=== PATIENT | female | born 1945 | race Caucasian/White ===

== ENCOUNTER 2020-04-22 08:32 | Emergency (ER) | payer MEDICARE, SELFPAY ==
[2020-04-22 08:43] VITALS: BP 143/77; PULSE 90; RESP 16; TEMP 36.7; O2SAT 99
--- NOTE | 2020-04-22 08:55 | ED.EYEPROB ---
HPI - Eye Problem General Chief complaint: Eye Problems Stated complaint: EYE REDNESS/PAIN/DRAINAGE/HEADACHE Source: patient and RN notes reviewed Limitations: no limitations History of Present Illness HPI Narrative: The patient, who is a history of dry eyes, presents with left eye redness. Patient states she is on antihypertensives[including clonidine, etc.], and so saw racking technician on Thursday for dry eyes and was given Systane. She now complains of left eye discharge and redness without fever, sneezing/wheezing, photophobia, injury, foreign body sensation. Discussed possible causes [allergic, infectious, etc.] and will treat broadly this weekend, with follow-up by her eye doctor next week. Related Data Home Medications Medication Instructions Recorded Confirmed halobetasol propionate 1 applic TOPICAL BID 04/22/20 04/22/20 tacrolimus 1 applic TOPICAL BID 04/22/20 04/22/20 Allergies Allergy/AdvReac Type Severity Reaction Status Date / Time Latex, Natural Rubber Allergy Intermediate HIVES Verified 04/22/20 08:38 peanut Allergy Intermediate ITCHING Verified 04/22/20 08:38 ENTIRE BODY fenofibrate Allergy Unknown dizziness Verified 04/22/20 08:38 montelukast Allergy Unknown Nausea Verified 04/22/20 08:38 ranitidine Allergy Unknown muscle Verified 04/22/20 08:38 cramps Abxslyn-Aaf-Wxg Reductase Allergy Unknown leg cramps Verified 04/22/20 08:38 Inhibitor tramadol Allergy Unknown Unknown Verified 04/22/20 08:38 Review of Systems Review of Systems: Narrative: General/Constitutional: No weight loss,fever Eyes: REPORTS redness,discharge Ears/Nose/Throat: No: Epistaxis,ear discharge Respiratory: Denies: Hemoptysis Gastrointestinal: No Vomiting, Bleeding-rectal Skin: No Lumps, eruption Neurologic: No Focal Weakness,Sz Hematologic: Denies: Petechiae/Purpura Psychiatric: No: Suicida ideationl All Other Systems: Reviewed and Negative [facility] Past Medical History Medical History (Updated 04/22/20 @ 09:41 by Michael Hernandez MD) Arthritis BP (high blood pressure) Full body hives Mixed hyperlipidemia Pneumonia Urticaria Family History Family History Sibling Hypertension Family history of kidney disease Family history of malignant neoplasm of breast in first degree relative Family history of liver disease Family history of renal failure Mother Family history of heart disease in male family member before age 55 Acute myocardial infarction Father Cerebrovascular accident Family history of coronary artery disease, Onset Age: 68 Family history of gout Social History Social History (Updated 01/19/20 @ 08:53 by Kim Salmeron) Social History: Smoking status: Never smoker Second hand tobacco smoke exposure: No Alcohol intake: never Substance use: never Substance use type: does not use Gender identity (if verbalized by the patient): Female Comments At time of signature, agree with nursing past medical, surgical, social and family history. There is no relevant family history pertinent to the presenting complaint Exam Narrative: Exam Narrative: General Appearance: Well appearing, Well nourished, No distress EYE: PERRLA ,Pqwy-[id number]-jlwtfd mild inflammation, EOMI ,Lens normal Normal corneas (no fluorescein done), anterior chamber deep, Conjunctiva injection OS Ears: External ear normal, Auditory canal normal Nose: Normal nose, Nares clear Mouth/Throat: Normal appearing, Normal lips Supple Respiratory: Airway patent, No respiratory distress Skin: Warm, Dry Neurological: A&O x3,, Normal affect Course Vital Signs Vital signs: Vital Signs Temperature 98.1 F 04/22/20 08:43 Pulse Rate 90 04/22/20 08:43 Respiratory Rate 16 04/22/20 08:43 Blood Pressure 143/77 H 04/22/20 08:43 Pulse Oximetry 99 04/22/20 08:43 Temperature 98.1 F 04/22/20 08:43 Pulse Rate 90 04/22/20 08:43 Respirat
== END 2020-04-22 09:30 | disposition home or self-care (01) ==
PROVIDERS: Emergency Provider Emergency Medicine; PCP Family Medicine
DX: H10.32 Unspecified acute conjunctivitis, left eye (principal); M35.00 Sjogren syndrome, unspecified; M19.90 Unspecified osteoarthritis, unspecified site; E78.2 Mixed hyperlipidemia
CPT/HCPCS: 99213; G0463

== ENCOUNTER 2020-07-02 15:40 | Emergency (ER) | payer MEDICARE, SELFPAY ==
--- NOTE | ~2020-07-02 | CT_ITS ---
EXAMINATION: CT abdomen pelvis w con DATE: 07/02/2020 17:00 INDICATION: Left lower quadrant abdominal pain TECHNIQUE: Computed tomography (CT) of the abdomen and pelvis was performed with 100 cc Omnipaque 350 intravenous contrast. The dose-length product was 1243.33 mGy-cm. Automated exposure control and ite rative reconstruction technique were employed. COMPARISON: CT dated 01/14/2018. FINDINGS: Heart size normal. No significant pleural or pericardial effusion. Bibasilar dependent atel ectasis. Fatty infiltration of the liver. Status post cholecystectomy. There is mild thickening of the descend ing colon with surrounding inflammatory changes, consistent with acute diverticulitis. No evidence fo r perforation or abscess. The appendix is likely surgically absent. No significant vascular abnormali ty. IMPRESSION: 1. Acute uncomplicated diverticulitis of the descending colon. Reviewed, dictated and finalized at location A. OSIVE TECHNICIAN
[2020-07-02 15:49] VITALS: BP 164/76; PULSE 107; RESP 20; TEMP 37.1; O2SAT 96
[2020-07-02 16:08] LABS: Basophils Absolute Auto 0.1 K/mm3 (0.0-0.1); Basophils Percent Auto 0.4 % (0.2-1.2); Eosinophils Absolute Auto 0.2 K/mm3 (0-0.3); Eosinophils Percent Auto 1.2 % (0-4.4); Hematocrit 45.3 % (37.0-47.0); Hemoglobin 15.5 g/dL (12.0-15.0); Immature Granulocyte Absolute 0.04 K/mm3 (0.00-0.031); Immature Granulocyte Percent A 0.3 % (0-0.5); Mean Corpuscular HGB Conc 34.2 g/dl (32-36); Mean Corpuscular Hemoglobin 29.6 pg (26-34); Mean Corpuscular Volume 86.6 fl (80-100); Mean Platelet Volume 9.5 fl (7.4-10.4); Monocytes Absolute Auto 1.5 K/mm3 (0.1-0.6); Monocytes Percent Auto 10.5 % (2.6-8.5); Neutrophils Absolute Auto 10.4 K/mm3 (1.3-6.7); Neutrophils Percent Auto 74.6 % (45.5-73.1); Platelet Count Result 270 k/mm3 (150-375); Red Blood Count 5.23 M/mm3 (4.2-5.4); Red Cell Distribution Width 12.8 % (11.5-14.5); White Blood Count 13.9 K/mm3 (4.5-10.0)
[2020-07-02 16:20] LABS: Alanine Aminotransferase 22 U/L (4-35); Albumin Level 4.1 g/dL (3.5-5.1); Alkaline Phosphatase 66 U/L (38-126); Anion Gap 6 mmol/L (8-16); Aspartate Amino Transferase 22 U/L (14-36); Bilirubin,Total 1.2 mg/dL (0.2-1.3); Blood Urea Nitrogen 11 mg/dL (7-17); Calcium 8.9 mg/dL (8.4-10.2); Carbon Dioxide 27 mmol/L (22-30); Chloride 101 mmol/L (98-107); Estimated CRCL calculation 47 ml/min; Estimated Glomerular Filt Rate 54; Glucose 135 mg/dL (65-105); Lipase 50 U/L (23-300); Sodium 134 mmol/L (137-145)
[2020-07-02 16:31] LABS: Add Urine Microscopic? YES; Appearance Urine Clear (Clear); Bacteria Urine 1+ /hpf; Bilirubin Urine Negative (Negative); Blood Urine Negative (Negative); Color Urine Yellow (Yellow); Glucose Urine UA Negative (Negative); Ketones Urine Negative (Negative); Leukocyte Esterase Ur 2+ LEU/UL (Negative); Mucus Urine Few /lpf; Nitrate Urine Negative (Negative); Protein Urine 1+ mg/dL (Negative); RBC Urine 0-2 /hpf (0-2); Specific Grav Ur 1.014 (1.001-1.035); Squamous Epithelial Cell Urine Many /hpf (Few); Urobilinogen Urine Negative mg/dL (<2.0); WBC Urine 31-50 /hpf
[2020-07-02] MEDS: SODIUM CHLORIDE 0.9% IV 500 ML 999 ML IV CONT (16:46)
--- NOTE | 2020-07-02 16:57 | ED.ABDPAIN ---
HPI - Abdominal Pain General Chief Complaint: Abdominal Pain Stated Complaint: ABD Pain Time Seen by Provider: 07/02/20 15:44 Source: patient and family Mode of arrival: ambulatory Limitations: no limitations History of Present Illness HPI narrative: Patient is 74-year-old female who presents for evaluation of left lower quadrant abdominal pain with some mucus stools a small amount of blood noting history of diverticulitis stating symptoms are consistent with past diverticulitis denies fever chills nausea vomiting presents in no distress lives at home with her Related Data Home Medications Medication Instructions Recorded Confirmed halobetasol propionate 1 applic TOPICAL BID 04/22/20 05/28/20 tacrolimus 1 applic TOPICAL BID 04/22/20 05/28/20 Allergies Allergy/AdvReac Type Severity Reaction Status Date / Time Latex, Natural Rubber Allergy Intermediate HIVES Verified 07/02/20 16:04 peanut Allergy Intermediate ITCHING Verified 07/02/20 16:04 ENTIRE BODY tramadol Allergy Unknown Unknown Verified 07/02/20 16:04 fenofibrate AdvReac Unknown dizziness Verified 07/02/20 16:04 montelukast AdvReac Unknown Nausea Verified 07/02/20 16:04 ranitidine AdvReac Unknown muscle Verified 07/02/20 16:04 cramps Suvbnmr-Yeu-Iup Reductase AdvReac Unknown leg cramps Verified 07/02/20 16:04 Inhibitor Review of Systems Review of Systems: All systems reviewed & are unremarkable except as noted in HPI and below PMFSH Past Medical History Medical History (Updated 07/02/20 @ 17:50 by Hank Loya PA-C) Arthritis BP (high blood pressure) Full body hives Mixed hyperlipidemia Pneumonia Urticaria Family History Family History Sibling Hypertension Family history of kidney disease Family history of malignant neoplasm of breast in first degree relative Family history of liver disease Family history of renal failure Mother Family history of heart disease in male family member before age 55 Acute myocardial infarction Father Cerebrovascular accident Family history of coronary artery disease, Onset Age: 68 Family history of gout Social History Social History Social History: Smoking status: Never smoker Second hand tobacco smoke exposure: No Alcohol intake: never Substance use: never Substance use type: does not use Gender identity (if verbalized by the patient): Female Exam Narrative: Exam Narrative: GENERAL: Well-appearing, well-nourished, and in no acute distress. HEAD: Normocephalic, atraumatic. EYES: PERRLA and EOMI. ENT: Nares clear, no rhinorrhea or epistaxis. Mucous membranes moist. CHEST: Clear to auscultation. No respiratory distress. No wheezes rales or rhonchi HEART: Regular rate and rhythm. No murmur heard. Normal peripheral pulses. ABDOMEN: Soft, left-sided abdominal tenderness with voluntary guarding, nondistended EXTREMITIES: Normal range of motion. No edema. SKIN: Warm, dry, no rash. NEURO: No focal deficits. Alert and oriented x3. PSYCH: Normal mood and affect. Course Course Emergency Course: Patient with uncomplicated diverticulitis afebrile nontoxic-appearing no distress will be discharged home with outpatient follow-up Patient afebrile nontoxic-appearing no emesis feels comfortable with managing her diverticulitis having had multiple episodes in the past patient will follow with the provided GI referral and primary care Vital Signs Vital signs: Vital Signs Temperature 98.7 F 07/02/20 15:49 Pulse Rate 107 H 07/02/20 15:49 Respiratory Rate 20 07/02/20 15:49 Blood Pressure 164/76 H 07/02/20 15:49 Pulse Oximetry 96 07/02/20 15:49 Temperature 98.7 F 07/02/20 15:49 Pulse Rate 82 07/02/20 17:20 Respiratory Rate 18 07/02/20 17:20 Blood Pressure 118/57 L 07/02/20 17:20 Pulse Oximetry 95 07/02/20 17:20 LORI Dominguez
[2020-07-02 17:20] VITALS: BP 118/57; PULSE 82; RESP 18; O2SAT 95
[2020-07-02 18:19] VITALS: BP 123/55; PULSE 77; RESP 17; O2SAT 100
== END 2020-07-02 18:21 | disposition home or self-care (01) ==
PROVIDERS: Emergency Medicine; Emergency Provider Emergency Medicine; PCP Family Medicine
DX: K57.32 Diverticulitis of large intestine without perforation or abscess without bleeding (principal); M19.90 Unspecified osteoarthritis, unspecified site; I10 Essential (primary) hypertension; E78.2 Mixed hyperlipidemia
CPT/HCPCS: 36415; 74177; 80053; 81001; 83690; 85025; 87077; 87086; 87088; 87186; 96365; 99284; J0131; J7040; Q9967

== ENCOUNTER 2020-07-10 07:51 | Outpatient (CLI) | payer MEDICARE, SELFPAY ==
--- NOTE | ~2020-07-10 | MM_ITS ---
EXAMINATION: MM screening lora BI w blessing HISTORY: Screening mammogram TECHNIQUE: Craniocaudal and mediolateral oblique 3-D tomosynthesis images were obtained and synthetic 2-D images were generated. CAD analysis was submitted and interpreted. COMPARISON: 06/20/2019, 06/17/2018, 06/08/2017 bilateral digital screening mammogram examinations BREAST PARENCHYMAL COMPOSITION: There are scattered areas of fibroglandular density. FINDINGS: .. There is no evidence of suspicious mass, calcification, or architectural distortion to s uggest malignancy in either breast. There has been no suspicious interval change. IMPRESSION: 1. No mammographic evidence of malignancy. 2. Recommend routine screening mammography in one year. BI-RADS Category 1: Negative Reviewed, dictated and finalized at location A. [employer] INTELLIGENCE OFFICER CHIEF
== END 2020-07-10 07:52 | disposition home or self-care (01) ==
LOC: ANHIMG 07:53
PROVIDERS: PCP Family Medicine; Visit Provider Family Medicine
DX: Z12.31 Encounter for screening mammogram for malignant neoplasm of breast (principal)
CPT/HCPCS: 77063; 77067

== ENCOUNTER 2020-09-12 07:56 | Outpatient (CLI) | payer MEDICARE, SELFPAY | END 2020-09-12 07:57 | disposition home or self-care (01) | LOC: ANHCOVIDVC 07:57 | PROVIDERS: PCP Family Medicine | DX: Z23 Encounter for immunization (principal) | CPT/HCPCS: 0001A; 91300 ==

== ENCOUNTER 2020-10-03 07:57 | Outpatient (CLI) | payer MEDICARE, SELFPAY | END 2020-10-03 07:58 | LOC: ANHCOVIDVC 07:57 | PROVIDERS: PCP Family Medicine | DX: Z23 Encounter for immunization (principal) | CPT/HCPCS: 0002A; 91300 ==

== ENCOUNTER → 2022-01-17 07:43 | Outpatient (CLI) | payer MEDICARE, SELFPAY ==
--- NOTE | ~2022-01-17 | DEXA_ITS ---
Bone Density Report Name: TONY BREAUX Age: 76 Sex: Female Ethnicity: White Date of : 1945 Indication: postmenopausal; screening for osteoporosis; Referring Provider: GEM MILLAN Study: Bone densitometry was performed. Exam Date: January 17, 2022 Accession number: [id number] Bone Density: Region BMD T-score Z-score Classification AP Spine (L1-L4) 0.940 -1.0 1.4 Normal Femoral Neck (Left) 0.746 -0.9 1.2 Normal Total Hip (Left) 0.878 -0.5 1.3 Normal Femoral Neck (Right) 0.768 -0.7 1.4 Normal Total Hip (Right) 0.891 -0.4 1.4 Normal Total Hip Mean 0.885 -0.5 1.4 Normal World Health Organization criteria for BMD impression classify patients as: Normal (T-score at or above -1.0), Osteopenia (T-score between -1.0 and -2.5), or Osteoporosis (T-score at or below -2.5). 10-year Fracture Risk: FRAX not reported because: All T-scores for Spine Total, Hip Total, Femoral Neck at or above -1.0 Treated for osteoporosis Clinical Information Provided by Patient: Is being treated for osteoporosis Has used the following medications: Fosamax (i.e. alendronate), Vitamin D, Calcium, MTV Patient maximum height was 65.0 Menopause Age: 39 No regular weight bearing exercise Drinks caffeinated beverages Onset of menses at age 13 Number of children 3 Impression: The patient has normal bone mass. Discussion: It is important to ask patients whether they are taking their medications and to encourage continued and appropriate compliance with their osteoporosis therapies to reduce fracture risk. It is also important to review their risk factors and encourage appropriate calcium and vitamin D intakes, exercise, fall prevention and other lifestyle measures. Follow-Up: Consider a repeat BMD and Vertebral Fracture Assessment (VFA) exam in 2 years or sooner if medically necessary, to reassess this patient's status. Reported by: AMADO on 01/17/2022 8:37:00 AM. Reviewed, dictated and finalized at location A. [facility]
--- NOTE | ~2022-01-17 | MM_ITS ---
EXAMINATION: MM screening lora BI w blessing HISTORY: Screening mammogram TECHNIQUE: Craniocaudal and mediolateral oblique 3-D tomosynthesis images were obtained and synthetic 2-D images were generated. CAD analysis was submitted and interpreted. COMPARISON: 07/10/2020, 06/20/2019, 06/17/2018 bilateral screening mammogram examinations BREAST PARENCHYMAL COMPOSITION: There are scattered areas of fibroglandular density. FINDINGS: There is no evidence of suspicious mass, calcification, or architectural distortion to sugg est malignancy in either breast. There has been no suspicious interval change. IMPRESSION: 1. No mammographic evidence of malignancy. 2. Recommend routine screening mammography in one year. BI-RADS Category 1: Negative Reviewed, dictated and finalized at location A.
== END ==
PROVIDERS: PCP Family Medicine; Visit Provider Family Medicine
DX: Z12.31 Encounter for screening mammogram for malignant neoplasm of breast (principal); Z78.0 Asymptomatic menopausal state
CPT/HCPCS: 77063; 77067; 77080

== ENCOUNTER 2022-07-26 19:47 | Emergency (ER) | payer MEDICARE, SELFPAY ==
--- NOTE | ~2022-07-26 | CT_ITS ---
EXAMINATION: CT abdomen pelvis w con DATE: 07/26/2022 22:33 INDICATION: Left lower quadrant abdominal pain. History of diverticulitis. TECHNIQUE: Computed tomography (CT) of the abdomen and pelvis was performed with 100 CC Omnipaque 350 intravenous contrast. Automated exposure control and iterative reconstruction technique were employe d. Exam dose: 898.53 mGy-cm total exam DLP. COMPARISON: July 02, 2020 CT abdomen pelvis FINDINGS: Minimal discoid atelectasis and/or scarring at the lung bases. Normal heart size. No perica rdial or pleural effusion. Small sliding hiatal hernia. Diffuse hepatic steatosis. No hepatic space-occupying mass lesion. Status post cholecystectomy. No bi le duct or pancreatic duct dilatation. No pancreatic mass lesion or calcification. Normal splenic siz e. Normal morphology of the adrenal glands. No renal mass lesion or urinary tract calculus or hydroureteronephrosis. The urinary bladder, uterus and adnexal areas are unremarkable. There is atherosclerotic calcification of the abdominal aorta and at the origins of both renal arteri es. No abdominal aortic aneurysm. No intraperitoneal or retroperitoneal or pelvic mass lesion or maury opathy or ascites. Extensive diverticulosis of left and right colon. There is prominent soft tissue thickening of the wall of the mid descending colon with prominent sana colic fat stranding in this region, most suggestive of uncomplicated diverticulitis, without abscess. However, this setting the fact that similar changes were present in similar location on July 02, 2020, continued follow-up is recommended, including possibly colonoscopy if necessary, in order to ex clude: colon malignancy... Degenerative changes of the thoracic and lumbar spine. Prominent bilateral hip osteoarthritis. IMPRESSION: Prominent soft tissue thickening of the wall of the descending colon with prominent sana colic fat stranding suggesting diverticulitis. Recommend clinical correlation and possibly colonoscop y to exclude colon carcinoma. Extensive diverticulosis of left and right colon Status post appendectomy Small sliding hiatal hernia Hepatic steatosis Status post cholecystectomy Reviewed, dictated and finalized at Location A. Reviewed, dictated and finalized at location A. R PLANT MECHANIC IMPRESSION: Prominent soft tissue thickening of the wall of the descending col on with prominent pericolic fat stranding suggesting diverticulitis. Recommend clinical correlation and possibly colonoscopy to exclude colon carcinoma. Extensive diverticulosis of left and right colon Status post appendectomy Small sliding hiatal hernia Hepatic steatosis Status post cholecystectomy
[2022-07-26 19:52] VITALS: BP 159/75; PULSE 97; RESP 16; TEMP 36.5; O2SAT 97
[2022-07-26] MEDS: SODIUM CHLORIDE 0.9% IV 1,000 ML 999 ML IV CONT (20:33)
[2022-07-26] MEDS: ONDANSETRON INJ 4 MG/2 ML VIAL IV PUSH (20:34)
[2022-07-26 20:37] LABS: Basophils Percent Auto 0.2 % (0.2-1.2); Eosinophils Absolute Auto 0.2 K/mm3 (0-0.3); Eosinophils Percent Auto 1.3 % (0-4.4); Hematocrit 42.6 % (37.0-47.0); Hemoglobin 14.6 g/dL (12.0-15.0); Immature Granulocyte Absolute 0.04 K/mm3 (0.00-0.031); Immature Granulocyte Percent A 0.3 % (0-0.5); Lymphocytes Percent Auto 13.1 % (18.3-44.2); Mean Corpuscular HGB Conc 34.3 g/dl (32-36); Mean Corpuscular Hemoglobin 29.7 pg (26-34); Mean Corpuscular Volume 86.8 fl (80-100); Mean Platelet Volume 9.4 fl (7.4-10.4); Monocytes Percent Auto 9.1 % (2.6-8.5); Neutrophils Absolute Auto 8.7 K/mm3 (1.3-6.7); Platelet Count Result 249 k/mm3 (150-375); Red Blood Count 4.91 M/mm3 (4.2-5.4); Red Cell Distribution Width 12.7 % (11.5-14.5); White Blood Count 11.5 K/mm3 (4.5-10.0)
[2022-07-26 20:51] LABS: Alanine Aminotransferase 29 U/L (6-35); Albumin Level 4.4 g/dL (3.5-5.1); Alkaline Phosphatase 51 U/L (38-126); Anion Gap 9 mmol/L (8-16); Aspartate Amino Transferase 25 U/L (14-36); Bilirubin,Total 1.2 mg/dL (0.2-1.3); Blood Urea Nitrogen 14 mg/dL (7-17); Calcium 9.4 mg/dL (8.4-10.2); Carbon Dioxide 24 mmol/L (22-30); Chloride 99 mmol/L (98-107); Estimated CRCL calculation 57 ml/min; Estimated Glomerular Filt Rate > 60; Glucose 135 mg/dL (65-110); Lipase 46 U/L (23-300); Potassium 3.8 mmol/L (3.4-5.0); Sodium 132 mmol/L (137-145)
--- NOTE | 2022-07-26 21:00 | ED.GENADULT ---
HPI - General Adult General Chief complaint: Abdominal Pain Stated complaint: abd pain Time Seen by Provider: 07/26/22 20:19 History of Present Illness HPI narrative: Patient 76-year-old female who presents emergency department with chief complaint of abdominal pain. Patient reports she has prior history of diverticulitis reports she had 1 hospitalization and has been able to be managed as an outpatient for previous episodes. Patient reports that over the last several days she has had pain on the left side of her abdomen that has been gradually worsening patient reports the pain is worse with movement and improved with rest. Related Data Allergies Allergy/AdvReac Type Severity Reaction Status Date / Time Latex, Natural Rubber Allergy Intermediate HIVES Verified 07/24/22 07:54 peanut Allergy Intermediate ITCHING Verified 07/24/22 07:54 ENTIRE BODY tramadol Allergy Unknown Unknown Verified 07/24/22 07:54 hydralazine AdvReac Severe elevated BP Verified 07/24/22 07:54 fenofibrate AdvReac Unknown dizziness Verified 07/24/22 07:54 montelukast AdvReac Unknown Nausea Verified 07/24/22 07:54 ranitidine AdvReac Unknown muscle Verified 07/24/22 07:54 cramps Hvwlbau-BNB-SnU Reductase AdvReac Unknown leg cramps Verified 07/24/22 07:54 Inhibitor [Isaogwq-Uik-Hvf Reductase Inhibitor] Review of Systems Review of Systems: A 10 system review of systems was completed on the patient and is negative except for what is stated in the HPI. Nursing and ancillary documentation was reviewed. PMFSH Past Medical History Medical History Anxiety about health Aortic atherosclerosis Arthritis Benign essential HTN Blood glucose elevated BP (high blood pressure) Bronchitis Candidiasis of breast Dermatitis Dietary counseling and surveillance (05/17/18) Disorder of bone, unspecified Diverticulosis Diverticulosis Diverticulosis of large intestine Essential (primary) hypertension Full body hives Hx of diverticulitis of colon Hyperlipidemia LLQ abdominal pain Mixed hyperlipidemia Mixed hyperlipidemia Nonalcoholic steatohepatitis ([place]) Osteopenia after menopause Osteopenia of multiple sites Pelvic pain in female Pneumonia Pneumonia of left lower lobe due to infectious organism Urticaria Urticaria Urticaria due to heat Family History Family History Sibling Hypertension Family history of kidney disease Family history of malignant neoplasm of breast in first degree relative Family history of liver disease Family history of renal failure Mother Family history of heart disease in male family member before age 55 Acute myocardial infarction Father Cerebrovascular accident Family history of coronary artery disease, Onset Age: 68 Family history of gout Social History Social History Social History: Smoking status: Never smoker Second hand tobacco smoke exposure: No Alcohol intake: never Substance use: never Substance use type: does not use Lack of Transportation: No Lack of Food: Never True Current Housing: I Have Housing Concerned About Future Housing: No Difficulty Paying Gas/Electric Bills: No Difficulty Paying for Meds: No Currently Unemployed: YES Education: Don't Know Difficulty w/ Childcare or Family Care: No Living arrangements: with family Occupation/Education: retired Gender identity (if verbalized by the patient): Female Sexual Orientation (if Verbalized by the Patient): Straight or Heterosexual Exam Narrative: GENERAL: Well-appearing, well-nourished, and in no acute distress. HEAD: Normocephalic, atraumatic. EYES: PERRLA and EOMI. ENT: Nares clear, no rhinorrhea or epistaxis. Mucous membranes moist. NECK: Supple. CHEST: Clear to auscultation. No respiratory distress
[2022-07-26 22:13] LABS: Appearance Urine Clear (Clear); Bilirubin Urine Negative (Negative); Blood Urine Negative (Negative); Color Urine Yellow (Yellow); Glucose Urine UA Negative (Negative); Ketones Urine 1+ mg/dL (Negative); Leukocyte Esterase Ur Trace LEU/UL (Negative); Nitrate Urine Negative (Negative); Protein Urine Negative (Negative); Urobilinogen Urine 0.2 mg/dL (<2.0)
[2022-07-26 22:16] LABS: Bacteria Urine 2+ /hpf; RBC Urine 0-2 /hpf (0-2); Squamous Epithelial Cell Urine Rare /hpf (Few)
[2022-07-26 22:21] LABS: Add Urine Microscopic? YES
[2022-07-26 22:30] VITALS: BP 151/57; PULSE 90; RESP 16; O2SAT 98
[2022-07-26] MEDS: AMOXICILLIN/CLAVULANATE K 875-125 MG TAB 1 TABLET PO (23:39)
== END 2022-07-26 23:45 | disposition home or self-care (01) ==
PROVIDERS: Emergency Provider Emergency Medicine; PCP Family Medicine
DX: K57.32 Diverticulitis of large intestine without perforation or abscess without bleeding (principal); I70.0 Atherosclerosis of aorta; I10 Essential (primary) hypertension; E78.5 Hyperlipidemia, unspecified; E78.2 Mixed hyperlipidemia; M19.90 Unspecified osteoarthritis, unspecified site; M85.80 Other specified disorders of bone density and structure, unspecified site; Z87.01 Personal history of pneumonia (recurrent); K57.90 Diverticulosis of intestine, part unspecified, without perforation or abscess without bleeding; K44.9 Diaphragmatic hernia without obstruction or gangrene; K76.0 Fatty (change of) liver, not elsewhere classified
CPT/HCPCS: 36415; 74177; 80053; 81001; 83690; 85025; 87077; 87086; 87186; 96361; 96374; 99284; A9270; J2405; J7030; Q9967

== ENCOUNTER 2022-09-01 17:44 | Emergency (ER) | payer MEDICARE, SELFPAY ==
[2022-09-01 17:49] VITALS: BP 145/60; PULSE 85; RESP 16; TEMP 36.7; O2SAT 98
--- NOTE | 2022-09-01 18:10 | ED.URI ---
HPI - URI/Sore Throat General Chief Complaint: Upper Respiratory Infection Stated Complaint: Congestion,Headache,Cough Source: patient Mode of arrival: ambulatory Limitations: no limitations History of Present Illness HPI Narrative: 76-year-old female presents to [facility] with complaints of 3 day history of headache, nasal congestion, runny nose, chills and sinus pressure. Patient reports that she has a history of sinus infections and her symptoms feel similar. Patient's persistent that she needs antibiotics. Patient reports that she has a history of diverticulitis and was on a 10 day course of amoxicillin approximately 2-3 weeks ago and is scheduled for colonoscopy at the end the month. Patient denies sick contacts. Patient denies recent travel. Patient denies fever, nausea vomiting or diarrhea. MD elicited complaint: rhinorrhea, nasal congestion and sinus pain Onset (ago): day(s) (3) Able to tolerate fluids by mouth: Yes Exacerbating factors: nothing Relieving factors: nothing Treatments prior to arrival: other (Saline washes and salt water gargles) Related Data Home Medications Medication Instructions Recorded Confirmed linagliptin 5 mg tablet (Tradjenta) 5 mg PO QAM 08/21/22 09/01/22 Allergies Allergy/AdvReac Type Severity Reaction Status Date / Time Latex, Natural Rubber Allergy Intermediate HIVES Verified 09/01/22 17:49 peanut Allergy Intermediate ITCHING Verified 09/01/22 17:49 ENTIRE BODY tramadol Allergy Unknown Unknown Verified 09/01/22 17:49 hydralazine AdvReac Severe elevated BP Verified 09/01/22 17:49 fenofibrate AdvReac Unknown dizziness Verified 09/01/22 17:49 montelukast AdvReac Unknown Nausea Verified 09/01/22 17:49 ranitidine AdvReac Unknown muscle Verified 09/01/22 17:49 cramps Gkmmvpy-VUU-QnY Reductase AdvReac Unknown leg cramps Verified 09/01/22 17:49 Inhibitor [Yquagfg-Bkb-Gbu Reductase Inhibitor] Review of Systems Constitutional: Constitutional: Denies chills, Denies fatigue, Denies fever(s) and Denies weakness ENT: Denies vertigo, Denies dizziness, Denies epistaxis and Reports nasal congestion Comments: Sinus pressure, runny nose Cardiovascular: Cardiovascular: Denies chest pain Respiratory: Respiratory: Reports cough, Denies dyspnea and Denies wheezing Gastrointestinal: Gastrointestinal: Denies diarrhea Musculoskeletal: Musculoskeletal: Denies arthralgias and Denies joint swelling Integumentary/Breasts: Skin/Breast: Denies rash PMFSH Past Medical History Medical History Anxiety about health Aortic atherosclerosis Arthritis Benign essential HTN Blood glucose elevated BP (high blood pressure) Bronchitis Candidiasis of breast Dermatitis Dietary counseling and surveillance (05/17/18) Disorder of bone, unspecified Diverticulosis Diverticulosis Diverticulosis of large intestine Essential (primary) hypertension Full body hives Hx of diverticulitis of colon Hyperlipidemia LLQ abdominal pain Mixed hyperlipidemia Mixed hyperlipidemia Nonalcoholic steatohepatitis ([place]) Osteopenia after menopause Osteopenia of multiple sites Pelvic pain in female Pneumonia Pneumonia of left lower lobe due to infectious organism Urticaria Urticaria Urticaria due to heat Family History Family History Sibling Hypertension Family history of kidney disease Family history of malignant neoplasm of breast in first degree relative Family history of liver disease Family history of renal failure Mother Family history of heart disease in male family member before age 55 Acute myocardial infarction Father Cerebrovascular accident Family history of coronary artery disease, Onset Age: 68 Family history of gout Social History Social History Social History: Smoking status: Never smoker Second
== END 2022-09-01 18:20 | disposition home or self-care (01) ==
PROVIDERS: Emergency Provider Nurse Practitioner Family; PCP Family Medicine
DX: J32.9 Chronic sinusitis, unspecified (principal); I70.0 Atherosclerosis of aorta; M19.90 Unspecified osteoarthritis, unspecified site; I10 Essential (primary) hypertension; E78.2 Mixed hyperlipidemia; K75.81 Nonalcoholic steatohepatitis (NASH); M85.80 Other specified disorders of bone density and structure, unspecified site
CPT/HCPCS: 99213; G0463

== ENCOUNTER 2022-09-19 00:51 | Day surgery (SDC) | payer MEDICARE, SELFPAY ==
[2022-09-10 13:06] VITALS: BMI 31.8
[2022-09-19 12:50] VITALS: BP 148/52; PULSE 91; RESP 18; TEMP 36.1; O2SAT 98; BMI 30.9
[2022-09-19] MEDS: LACTATED RINGERS 1,000 ML 150 ML IV CONT (13:02)
--- NOTE | 2022-09-19 13:03 | PM.HPGS ---
History of Present Illness History of Present Illness Consent: Risks, benefits, and alternatives have been discussed and questions answered. Patient agrees to proceed with procedure. Chief complaint: diverticulitis,abnormal radiology findings Narrative: Elana Unger is a 76 year old female Who went to emergency room with pain in the left lower quadrant that had been present for couple of days.? This reminded her of her previous attacks of diverticulitis.? CT scan was done that did show thickening of the wall of the mid descending colon suggestive of uncomplicated diverticulitis.? It was noted that these changes were identical to those from a CT scan 2 years ago and it was recommended? that she have colonoscopy to rule out malignancy.? As usually is the case, she improved with antibiotics.? She has had many attacks of diverticulitis over the years. she has had a polyp removed in the past. Review of Systems Review of Systems: All systems reviewed & are unremarkable except as noted in HPI and below PMFSH Past Medical History Medical History Anxiety about health Aortic atherosclerosis Arthritis Benign essential HTN Blood glucose elevated BP (high blood pressure) Bronchitis Candidiasis of breast Dermatitis Dietary counseling and surveillance (05/17/18) Disorder of bone, unspecified Diverticulosis Diverticulosis Diverticulosis of large intestine Essential (primary) hypertension Full body hives Hx of diverticulitis of colon Hyperlipidemia LLQ abdominal pain Mixed hyperlipidemia Mixed hyperlipidemia Nonalcoholic steatohepatitis ([place]) Osteopenia after menopause Osteopenia of multiple sites Pelvic pain in female Pneumonia Pneumonia of left lower lobe due to infectious organism Urticaria Urticaria Urticaria due to heat Family History Family History Sibling Hypertension Family history of kidney disease Family history of malignant neoplasm of breast in first degree relative Family history of liver disease Family history of renal failure Mother Family history of heart disease in male family member before age 55 Acute myocardial infarction Father Cerebrovascular accident Family history of coronary artery disease, Onset Age: 68 Family history of gout Social History Social History Social History: Smoking status: Never smoker Second hand tobacco smoke exposure: No Alcohol intake: never Substance use: never Substance use type: does not use Lack of Transportation: No Lack of Food: Never True Current Housing: I Have Housing Concerned About Future Housing: No Difficulty Paying Gas/Electric Bills: No Difficulty Paying for Meds: No Currently Unemployed: YES Education: Don't Know Difficulty w/ Childcare or Family Care: No Living arrangements: with family Occupation/Education: retired Gender identity (if verbalized by the patient): Female Sexual Orientation (if Verbalized by the Patient): Straight or Heterosexual Spiritual care concerns: No Meds Home Medications and Allergies Home Medications Medication Instructions Recorded Confirmed Type alendronate 70 mg tablet (Fosamax) 70 mg PO WEEKLY #14 tabs 10/17/21 09/19/22 Rx clonidine HCl 0.1 mg tablet 0.1 mg PO BID #180 tabs 10/17/21 09/19/22 Rx metoprolol succinate 50 mg 75 mg PO DAILY #135 tabs 10/17/21 09/19/22 Rx tablet,extended release 24 hr (Toprol XL) amlodipine 5 mg-benazepril 20 mg See Rx Instructions .Route 07/08/22 09/19/22 Rx capsule .COMPLEX #90 caps blood sugar diagnostic (Accu-Chek #100 ea 07/24/22 09/19/22 Rx Guide test strips) blood-glucose meter (Accu-Chek #1 ea 07/24/22 09/19/22 Rx Guide Glucose Meter) lancets 30 gauge ([place] Chek #100 ea 07/24/22 09/19/22 Rx Lancets) allopurinol 100 mg tablet See Rx Instructions .Rou
[2022-09-19 13:04] LABS: Glucose Point of Care 132 mg/dl (65-105)
--- NOTE | 2022-09-19 13:05 | WPDANESEPPF ---
Anes - Initial Pre Proc Eval Procedure: Operation Date: 09/19/22 14:00 Proposed Procedures p Colonoscopy - Clyde Nunn MD Date/Time: 09/19/22 13:05 Surgeon: Clyde Nunn MD Pre Op Diagnosis: diverticulitis,abnormal radiology findings Patient Data Age: 76 Gender: F Height: 1.63 m Weight: 81.7 kg Last Vital Signs Temp 97.0 F L 09/19/22 12:50 Pulse 91 09/19/22 12:50 Resp 18 09/19/22 12:50 BP 148/52 H 09/19/22 12:50 Pulse Ox 98 09/19/22 12:50 O2 Del Method Room Air 09/19/22 12:50 Allergies Allergy/AdvReac Type Severity Reaction Status Date / Time Latex, Natural Rubber Allergy Intermediate HIVES Verified 09/19/22 12:49 peanut Allergy Intermediate ITCHING Verified 09/19/22 12:49 ENTIRE BODY tramadol Allergy Unknown Unknown Verified 09/19/22 12:49 hydralazine AdvReac Severe elevated BP Verified 09/19/22 12:49 fenofibrate AdvReac Unknown dizziness Verified 09/19/22 12:49 montelukast AdvReac Unknown Nausea Verified 09/19/22 12:49 ranitidine AdvReac Unknown muscle Verified 09/19/22 12:49 cramps Ihfkxao-CGE-BvK Reductase AdvReac Unknown leg cramps Verified 09/19/22 12:49 Inhibitor [Mxxtxdy-Bab-Ddd Reductase Inhibitor] Home Medications Medication Instructions Recorded Confirmed Type alendronate 70 mg tablet (Fosamax) 70 mg PO WEEKLY #14 tabs 10/17/21 09/19/22 Rx clonidine HCl 0.1 mg tablet 0.1 mg PO BID #180 tabs 10/17/21 09/19/22 Rx metoprolol succinate 50 mg 75 mg PO DAILY #135 tabs 10/17/21 09/19/22 Rx tablet,extended release 24 hr (Toprol XL) amlodipine 5 mg-benazepril 20 mg See Rx Instructions .Route 07/08/22 09/19/22 Rx capsule .COMPLEX #90 caps blood sugar diagnostic (Accu-Chek #100 ea 07/24/22 09/19/22 Rx Guide test strips) blood-glucose meter (Accu-Chek #1 ea 07/24/22 09/19/22 Rx Guide Glucose Meter) lancets 30 gauge ([place] Chek #100 ea 07/24/22 09/19/22 Rx Lancets) allopurinol 100 mg tablet See Rx Instructions .Route 08/18/22 09/19/22 Rx .COMPLEX #90 tabs linagliptin 5 mg tablet (Tradjenta) 5 mg PO QAM 08/21/22 09/19/22 History doxycycline hyclate 100 mg capsule 100 mg PO BID 10 days #20 caps 09/01/22 09/19/22 Rx fluticasone propionate 50 1 spray intranasal BID #16 grams 09/01/22 09/19/22 Rx mcg/actuation nasal spray,suspension (Flonase Allergy Relief) Laboratory Tests 09/19/22 13:01 POC Capillary Glucose 132 mg/dl H mg/dl (65-105) Patient hx anesthesia problems: none Family hx anesthesia problems: none Results Review: All pre-operative results and documents have been reviewed as part of the pre-operative evaluation. [facility] Past Medical History Medical History Anxiety about health Aortic atherosclerosis Arthritis Benign essential HTN Blood glucose elevated BP (high blood pressure) Bronchitis Candidiasis of breast Dermatitis Dietary counseling and surveillance (05/17/18) Disorder of bone, unspecified Diverticulosis Diverticulosis Diverticulosis of large intestine Essential (primary) hypertension Full body hives Hx of diverticulitis of colon Hyperlipidemia LLQ abdominal pain Mixed hyperlipidemia Mixed hyperlipidemia Nonalcoholic steatohepatitis ([place]) Osteopenia after menopause Osteopenia of multiple sites Pelvic pain in female Pneumonia Pneumonia of left lower lobe due to infectious organism Urticaria Urticaria Urticaria due to heat Family History Family History Sibling Hypertension Family history of kidney disease Family history of malignant neoplasm of breast in first degree relative Family history of liver disease Family history of renal failure Mother Family history of heart disease in male family member before age 55 Acute myocardial infarction Father Cerebrovascular accident Family history of coronary artery disease, Onset Age: 68 Family history
[2022-09-19 13:53] VITALS: BP 138/113; PULSE 106; RESP 22; O2SAT 96
[2022-09-19 14:03] VITALS: BP 119/53; PULSE 97; RESP 22; O2SAT 98
[2022-09-19 14:13] VITALS: BP 129/70; PULSE 100; RESP 21; O2SAT 100
== END 2022-09-19 14:24 | disposition home or self-care (01) ==
PROVIDERS: PCP Family Medicine; Visit Provider Internal Medicine Gastroenterology
PROC: 0DJD8ZZ Inspection of Lower Intestinal Tract, Via Natural or Artificial Opening Endoscopic (ICD-10-PCS; CPT 45378; principal; 2022-09-19 14:00)
DX: K57.30 Diverticulosis of large intestine without perforation or abscess without bleeding (principal); K64.8 Other hemorrhoids; Z86.010 Personal history of colon polyps; Z87.19 Personal history of other diseases of the digestive system; I10 Essential (primary) hypertension; E78.2 Mixed hyperlipidemia; M85.80 Other specified disorders of bone density and structure, unspecified site; K75.81 Nonalcoholic steatohepatitis (NASH); Z79.84 Long term (current) use of oral hypoglycemic drugs
CPT/HCPCS: 45378; 82948; J2704; J7120

== ENCOUNTER 2022-10-01 14:30 | Outpatient (RCR) | payer MEDICARE, SELFPAY ==
[2022-08-19 10:59] VITALS: BMI 32.1
[2022-08-19 11:44] VITALS: BMI 32.1
== END 2022-10-28 08:39 | disposition home or self-care (01) ==
LOC: ANHDMC 14:30
PROVIDERS: PCP Family Medicine; Visit Provider Family Medicine
DX: E11.9 Type 2 diabetes mellitus without complications (principal); Z71.89 Other specified counseling; Z71.3 Dietary counseling and surveillance
CPT/HCPCS: 97802; G0108; G0109

== ENCOUNTER 2022-11-20 10:50 | Outpatient (RCR) | payer MEDICARE, SELFPAY ==
[2022-11-20 11:20] VITALS: BMI 32.7
[2022-11-20 11:21] VITALS: BMI 32.7
== END 2023-02-09 10:03 | disposition home or self-care (01) ==
LOC: ANHDMC 10:50
PROVIDERS: PCP Family Medicine; Visit Provider Family Medicine
DX: E11.65 Type 2 diabetes mellitus with hyperglycemia (principal); Z71.3 Dietary counseling and surveillance
CPT/HCPCS: 97803

== ENCOUNTER 2023-03-30 05:09 | Emergency (ER) | payer MEDICARE, SELFPAY ==
[2023-03-30] VITALS (7 sets, daily range): BP systolic 112–154; BP diastolic 50–73; PULSE 76–98; RESP 10–17; TEMP 36.6; O2SAT 93–99
--- NOTE | ~2023-03-30 | CT_ITS ---
EXAMINATION: CT abdomen pelvis w con DATE: 03/30/2023 06:25 INDICATION: Left lower quadrant abdominal pain. TECHNIQUE: Computed tomography (CT) of the abdomen and pelvis was performed with 100 mL Omnipaque 350 intravenous contrast. Automated exposure control and iterative reconstruction technique were employe d. The dose-length product was 993.02 mGy-cm. COMPARISON: CT abdomen and pelvis 07/26/2022 FINDINGS: The visualized portions of the lung bases demonstrate mild atelectasis. There is mild bronc hiectasis bilaterally. No pleural effusion. The heart is normal. No pericardial effusion. There is di ffuse hepatic steatosis. The spleen, pancreas, and adrenal glands are normal. There are cysts in the kidneys measuring up to 5 mm on the right. There are no dilated loops of bowel. There are scattered d iverticula in the colon. There is fat stranding around sigmoid colon with local bowel wall thickening , consistent with diverticulitis. There are changes of appendectomy. Aortic atherosclerosis is noted. There are no pathologically enlarged lymph nodes. There is no free intraperitoneal fluid. There is m oderate thoracic and lumbar spondylosis. IMPRESSION: 1. Acute sigmoid diverticulitis. No perforation or abscess. Reviewed, dictated and finalized at location E.
[2023-03-30 05:52] LABS: Basophils Absolute Auto 0.1 K/mm3 (0.0-0.1); Basophils Percent Auto 0.4 % (0.2-1.2); Eosinophils Absolute Auto 0.2 K/mm3 (0-0.3); Eosinophils Percent Auto 1.7 % (0-4.4); Hematocrit 45.2 % (37.0-47.0); Hemoglobin 14.9 g/dL (12.0-15.0); Immature Granulocyte Absolute 0.07 K/mm3 (0.00-0.031); Immature Granulocyte Percent A 0.5 % (0-0.5); Lymphocytes Absolute Auto 1.21 K/mm3 (0.9-3.2); Lymphocytes Percent Auto 9.2 % (18.3-44.2); Mean Corpuscular Hemoglobin 29.3 pg (26-34); Mean Platelet Volume 9.8 fl (7.4-10.4); Monocytes Absolute Auto 1.1 K/mm3 (0.1-0.6); Neutrophils Absolute Auto 10.6 K/mm3 (1.3-6.7); Neutrophils Percent Auto 80.2 % (45.5-73.1); Platelet Count Result 257 k/mm3 (150-375); Red Blood Count 5.08 M/mm3 (4.2-5.4); Red Cell Distribution Width 12.9 % (11.5-14.5); White Blood Count 13.2 K/mm3 (4.5-10.0)
--- NOTE | 2023-03-30 05:53 | ED.ABDPAIN ---
HPI - Abdominal Pain General Chief Complaint: Abdominal Pain Stated Complaint: LLQ pain Time Seen by Provider: 03/30/23 05:42 History of Present Illness HPI narrative: Patient presents to the emergency department with her . She is a history of diverticulosis diverticulitis. She has had persistent pain at home for the past 4 days. Denies fevers denies nausea vomiting and also denies blood in her stool. She has had chills at home. She has had a decreased appetite. She was hoping symptoms would improve but they have not gotten better. Related Data Allergies Allergy/AdvReac Type Severity Reaction Status Date / Time Latex, Natural Rubber Allergy Intermediate HIVES Verified 03/30/23 05:16 peanut Allergy Intermediate ITCHING Verified 03/30/23 05:16 ENTIRE BODY tramadol Allergy Unknown Unknown Verified 03/30/23 05:16 hydralazine AdvReac Severe elevated BP Verified 03/30/23 05:16 fenofibrate AdvReac Unknown dizziness Verified 03/30/23 05:16 montelukast AdvReac Unknown Nausea Verified 03/30/23 05:16 ranitidine AdvReac Unknown muscle Verified 03/30/23 05:16 cramps Diqphlb-EIA-IcF Reductase AdvReac Unknown leg cramps Verified 03/30/23 05:16 Inhibitor [Obpzahw-Fqb-Fxj Reductase Inhibitor] Review of Systems Review of Systems: Review of systems negative except what is documented in the HPI [facility] Past Medical History Medical History Anxiety about health Aortic atherosclerosis Arthritis Benign essential HTN Blood glucose elevated BP (high blood pressure) Bronchitis Candidiasis of breast Dermatitis Dietary counseling and surveillance (05/17/18) Disorder of bone, unspecified Diverticulosis Diverticulosis Diverticulosis of large intestine Essential (primary) hypertension Full body hives Hx of diverticulitis of colon Hyperlipidemia LLQ abdominal pain Mixed hyperlipidemia Mixed hyperlipidemia Nonalcoholic steatohepatitis ([place]) Osteopenia after menopause Osteopenia of multiple sites Pelvic pain in female Pneumonia Pneumonia of left lower lobe due to infectious organism Urticaria Urticaria Urticaria due to heat Family History Family History Sibling Hypertension Family history of kidney disease Family history of malignant neoplasm of breast in first degree relative Family history of liver disease Family history of renal failure Mother Family history of heart disease in male family member before age 55 Acute myocardial infarction Father Cerebrovascular accident Family history of coronary artery disease, Onset Age: 68 Family history of gout Social History Social History Social History: Smoking status: Never smoker Second hand tobacco smoke exposure: No Alcohol intake: never Substance use: never Substance use type: does not use Lack of Transportation: No Lack of Food: Never True Current Housing: I Have Housing Concerned About Future Housing: No Difficulty Paying Gas/Electric Bills: No Difficulty Paying for Meds: No Currently Unemployed: YES Education: Don't Know Difficulty w/ Childcare or Family Care: No Living arrangements: with family Occupation/Education: retired Gender identity (if verbalized by the patient): Female Sexual Orientation (if Verbalized by the Patient): Straight or Heterosexual Spiritual care concerns: No Exam Narrative: GENERAL: Well-appearing, well-nourished, and in no acute distress. HEAD: Normocephalic, atraumatic. EYES: PERRLA and EOMI. ENT: Nares clear, no rhinorrhea or epistaxis. Mucous membranes moist. NECK: Supple. CHEST: Clear to auscultation. No respiratory distress. HEART: Regular rate and rhythm. ABDOMEN: Soft, nondistended. Diffuse tenderness, left side moreso EXTREMITIES: Normal range of motion. No edema. SKIN: Warm, dry, no rash. N
[2023-03-30 05:59] LABS: Appearance Urine Clear (Clear); Bacteria Urine None Seen /hpf; Bilirubin Urine Negative (Negative); Blood Urine Negative (Negative); Color Urine Yellow (Yellow); Glucose Urine UA Negative (Negative); Ketones Urine Negative (Negative); Leukocyte Esterase Ur 1+ LEU/UL (Negative); Nitrate Urine Negative (Negative); Non Pathogenic Casts 0-2; Protein Urine Negative (Negative); RBC Urine 0-2 /hpf (0-2); Specific Grav Ur 1.013 (1.001-1.035); Squamous Epithelial Cell Urine Occasional /hpf (Few); Urobilinogen Urine 0.2 mg/dL (<2.0); pH Urine 6.5 (5.0-9.0)
[2023-03-30 06:01] LABS: Alanine Aminotransferase 23 U/L (6-35); Albumin Level 4.3 g/dL (3.5-5.1); Alkaline Phosphatase 62 U/L (38-126); Anion Gap 11 mmol/L (8-16); Aspartate Amino Transferase 21 U/L (14-36); Bilirubin,Total 0.9 mg/dL (0.2-1.3); Blood Urea Nitrogen 12 mg/dL (7-17); Calcium 9.2 mg/dL (8.4-10.2); Carbon Dioxide 23 mmol/L (22-30); Chloride 103 mmol/L (98-107); Estimated CRCL calculation 55 ml/min; Estimated Glomerular Filt Rate > 60; Glucose 166 mg/dL (65-110); Lipase 64 U/L (23-300); Potassium 4.2 mmol/L (3.4-5.0); Sodium 137 mmol/L (137-145)
[2023-03-30 06:04] LABS: Add Urine Microscopic? YES
[2023-03-30] MEDS: ONDANSETRON INJ 4 MG/2 ML VIAL IV PUSH (06:15)
[2023-03-30] MEDS: SODIUM CHLORIDE 0.9% IV 1,000 ML 999 ML IV CONT (06:15)
--- NOTE | 2023-03-30 07:07 | PC.NURSE ---
Report to Cy RN
[2023-03-30] MEDS: AMOXICILLIN/CLAVULANATE K 875-125 MG TAB 1 TABLET PO (07:36)
== END 2023-03-30 07:43 | disposition home or self-care (01) ==
PROVIDERS: Emergency Provider Emergency Medicine; PCP Family Medicine
DX: K57.32 Diverticulitis of large intestine without perforation or abscess without bleeding (principal); I10 Essential (primary) hypertension; K75.81 Nonalcoholic steatohepatitis (NASH); E78.2 Mixed hyperlipidemia; Z79.84 Long term (current) use of oral hypoglycemic drugs
CPT/HCPCS: 36415; 74177; 80053; 81001; 83690; 85025; 87077; 87086; 87186; 96361; 96374; 99284; A9270; J2405; J7030; Q9967

== ENCOUNTER → 2023-05-18 11:43 | Outpatient (CLI) | payer MEDICARE, SELFPAY ==
--- NOTE | ~2023-05-18 | MM_ITS ---
EXAMINATION: MM screening lora BI w blessing HISTORY: Screening mammogram TECHNIQUE: Craniocaudal and mediolateral oblique 3-D tomosynthesis images were obtained and synthetic 2-D images were generated. CAD analysis was submitted and interpreted. COMPARISON: 01/17/2022, , 06/20/2019 bilateral screening mammogram examinations BREAST PARENCHYMAL COMPOSITION: There are scattered areas of fibroglandular density. FINDINGS: There is no evidence of suspicious mass, calcification, or architectural distortion to sugg est malignancy in either breast. There has been no suspicious interval change. IMPRESSION: 1. No mammographic evidence of malignancy. 2. Recommend routine screening mammography in one year. BI-RADS Category 1: Negative Reviewed, dictated and finalized at location A. RN CAR ATTENDANT
== END ==
PROVIDERS: PCP Family Medicine; Visit Provider Physician Assistant
DX: Z12.31 Encounter for screening mammogram for malignant neoplasm of breast (principal)
CPT/HCPCS: 77063; 77067

== ENCOUNTER 2024-07-14 14:05 | Outpatient (CLI) | payer MEDICARE, SELFPAY ==
--- NOTE | ~2024-07-14 | MM_ITS ---
EXAMINATION: MM screening lora BI w blessing HISTORY: Screening TECHNIQUE: Craniocaudal and mediolateral oblique 3-D tomosynthesis images were obtained and synthetic 2-D images were generated. CAD analysis was submitted and interpreted. COMPARISON: Comparison to multiple prior studies sequentially, with oldest reviewed study dated 12/2017. BREAST PARENCHYMAL COMPOSITION: Not dense: There are scattered areas of fibroglandular density. FINDINGS: There is no evidence of suspicious mass, calcification, or architectural distortion to sugg est malignancy in either breast. There has been no suspicious interval change. IMPRESSION: 1. No mammographic evidence of malignancy. 2. Recommend routine screening mammography in one year. BI-RADS Category 1: Negative Reviewed, dictated and finalized at location B. MANAGER
--- OUTSIDE RECORDS SUMMARY | 2024-07-14 14:11 | XMS_ITS | Clinical Summary ---
Author Organization [facility] [place] [address] Address [address] [place] [address] Care Team Providers Care Food Service Attendant Name Role Phone Larisa Wells MD Primary Care Provider Allergies No known active allergies Social History Tobacco Use Types Packs/Day Years Used Date Smoking Tobacco: Never Assessed Personal Safety Answer Date Recorded Getting School Help Needed Not on file 08/15 Comments Unknown Sex and Gender Information Value Date Recorded Sex Assigned at Not on file Legal Sex Female 3:46 PM CDT Gender Identity Not on file Sexual Orientation Not on file Plan of Treatment Not on file Insurance [facility] MEDICARE [facility] MEDIC[facility] Address[facility] [id number] [place] [address] Care Teams Food Service Attendant Relationship Specialty Start Date End Date Larisa Wells MD [address] [facility] [address] [facility] [address] [place] [address] PCP - General Family Medicine 01/11/21
--- OUTSIDE RECORDS SUMMARY | 2024-07-14 14:11 | XMS_ITS ---
Author Organization [facility] Address [address] [place] [address] Care Team Providers Care Oracle Hyperion Consultant Name Role Phone Dr. Larisa Schneider Primary Care Provider Un available Marisa Aceves Unavailable [phone] ZZ-Migration, Provider Unavailable Unavailab le REASON FOR VISIT [facility] To [facility] Conversion Encounter Medications Medication SIG (Take, Route, Frequency, Duration) Notes Start Date End Date Status Toprol XL 50 MG 1 tab(s)in the morni ng and 1/2 in the evening orally once a day Active Tacrolimus 0.1 % 1 jordyn applied topica lly 2 times a day for 30 day(s) Active Halobetasol Propionate 0.05 % 1 jordyn applied topically 2 times a day for 10 day(s) Active Montelukast Sodium 10 MG 1 tab(s) orally once a day for 90 Active ZyrTEC Allergy 10 MG 1 tab(s) orally onc e a day Active amLODIPine Besy-Benazepril HCl 5-20 MG 1 cap(s) orally once a day for 30 day(s) Active Encounters Encounter Location Date Provider Diagnosis [facility] [address] [place] [address] 11/14/2023 Provider ZZ-Migration Plan Of Treatment Medication Medication Name Sig Start Date Stop Date Notes Montelukast Sodium 10 MG 1 tab(s) orally once a day for 90 Progress Notes * Elana BREAUX ADOB:1945 (78 yo F)Acc No.[id number]:11/14/2023 Patient: Elana QUINTANILLA Provider: Brian Segura :1945 A ge:78 Y S ex:Female Date:11/14/2023 [id number] Pcp:Dr. Larisa Schneider Subjective: * Chief Complaints: * 1 . [facility] To [facility] Conversion Encounter. * Medical History: * Medications: T aking amLODIPine Besy-Benazepril HCl 5-20 MG Capsule 1 cap(s) orally once a day , Taking Toprol XL 50 MG Tablet Extended Release 24 Hour 1 tab(s)in the morning and 1/2 in the evening orally once a day , Taking Halobetasol Propionate 0.05 % Cream 1 jordyn applied topically 2 times a day , Taking Tacrolimus 0.1 % Ointment 1 jordyn applied topically 2 times a day , Taking ZyrTEC Allergy 10 MG Tablet 1 tab(s) orally once a day Objective: * Vitals: Assessment: Plan: * Treatment: * Billing Information: * Visit Code: * Procedure Codes: * Electronic signature of Prov ider ZZ-Migration on 07/14/2024 at 02:11 PM SLAB INSTALLER Sign off status: Pending * Provider: Brian Segura Date: 0 11/14/2023 Generated for Rocío sandoval/Wiliam/Devin on: 0 07/14/2024 02:11 PM SLAB INSTALLER
--- OUTSIDE RECORDS SUMMARY | 2024-07-14 14:11 | XMS_ITS | Referral Summary ---
Author Organization [facility] [place] [address] Address [address] [place] [address] Care Team Providers Care Nicker And Breaker Name Role Phone Larisa Wells MD Primary [...] Plan of Treatment Not on file Insurance [facility] MEDICARE Care Teams Nicker And Breaker Relationship Specialty Start Date End Date Larisa Wells MD [address] [facility] [address] [facility] [address] [place] [address] PCP - General Family Medicine 01/11/21
--- OUTSIDE RECORDS SUMMARY | 2024-07-14 14:11 | XMS_ITS | Patient Health Record ---
Author Organization [facility] Address [address] [place] [address] Care Team Providers Care Assistant Counsel Name Role Phone Dr. Larisa Schneider Primary Care Provider Un available Marisa Aceves Unavailable [phone] ZZ-Migration, Provider Unavailable Unavailab le Reason For Referral No Information Medications Medication SIG (Take, Route, Frequency, Duration) Notes Start Date End Date Status AMLODIPINE-BENAZEPRIL 5 mg-20 mg 1 cap(s) orally once a day for 30 day(s) Active Toprol XL 50 MG 1 tab(s)in the morni ng and 1/2 in the evening orally once a day Active amLODIPine Besy-Benazepril HCl 5-20 MG 1 cap(s) orally once a day for 30 day(s) Active MONTELUKAST SODIUM 10 mg 1 tab(s) orally once a day for 90 Active HALOBETASOL TOPICAL 0.05% 1 jordyn applied topically 2 times a day for 10 day(s) Active Tacrolimus 0.1 % 1 jordyn applied topica lly 2 times a day for 30 day(s) Active TOPROL-XL 50 mg 1 tab(s)in the morni ng and 1/2 in the evening orally once a day Active Halobetasol Propionate 0.05 % 1 jordyn applied topically 2 times a day for 10 day(s) Active Montelukast Sodium 10 MG 1 tab(s) orally once a day for 90 Active ZyrTEC Allergy 10 MG 1 tab(s) orally onc e a day Active ZYRTEC 10 mg 1 tab(s) orally once a day Active TACROLIMUS TOPICAL 0.1% 1 jordyn applied to pically 2 times a day for 30 day(s) Active Immunizations Vaccine Route Administration Date Status Comme nts Flucelvax Unknown 03/20/2019 Administered Influenza Unknown 06/15/2018 Administered Portal Infor mation NOC Pneumovax 23 Unknown 11/27/2015 Administered Portal Information NOC Prevnar 13 Unknown 02/16/2012 Administered Portal I nformation NOC Tdap Unknown 07/22/1965 Administered Portal Infor mation Social History Tobacco Use: Social History Observation Description Date Details (start date - stop date) Never Smoker NA - NA Smoking Smart Form: Question Answer Notes Are you a: never smoker Problems Problem Type SNOMED Code ICD Code Onset Dates Problem Status W/U Status Risk Notes Problem Idiopathic urticaria (73129882) Idiopathic urticaria (L50.1) Active confirmed Problem Chronic rhinitis (27673338) Chronic rhinitis (J31.0) Active confirmed Problem Dermatitis (220453501) Dermatitis, unspecified (L30.9) Active confirmed Problem Allergy to peanuts (89615165) Allergy to peanuts (Z91.010) Active confirmed Encounters Encounter Location Date Provider Diagnosis [address] [address] 11/14/2023 Provider ZZ-Migration Plan Of Treatment No Information Insurance Providers Payer Name Payer Address Payer Phone Subscriber Number Group Number Insured Name Patient Relationship to Insured Coverage Start Date Coverage End Date [employer] [address] [place] [address] [id number] Elana Unger Self - patient is the insured Medical (General) History Medical History History ICD Code Essential (primary) hypertension Idiopathic urticaria L50.1 Surgical History Surgery Date(Month/Year) 3 C-Sections cholecystectomy Appendectomy Hospitalization History Reason Date(Month/Year) see above
== END 2024-07-14 14:06 | disposition home or self-care (01) ==
LOC: ANHIMG 14:06
PROVIDERS: PCP Family Medicine; Visit Provider Family Medicine
DX: Z12.31 Encounter for screening mammogram for malignant neoplasm of breast (principal)
CPT/HCPCS: 77063; 77067